=== PATIENT | male | born 1985 | race Hispanic/Latino ===

== ENCOUNTER 2023-04-01 14:42 | Emergency (ER) | payer BC ==
[~2023-04-01] VITALS: Ht 160 cm; Wt 79.4 kg
[2023-04-01 15:12] VITALS: BP 138/90; PULSE 79; RESP 18
== END 2023-04-01 19:33 | disposition home or self-care (01) ==
LOC: EDH 14:42
DX: S16.1XXA Strain of muscle, fascia and tendon at neck level, initial encounter (principal); S10.83XA Contusion of other specified part of neck, initial encounter; I10 Essential (primary) hypertension; Z90.49 Acquired absence of other specified parts of digestive tract; Z98.890 Other specified postprocedural states; X58.XXXA Exposure to other specified factors, initial encounter; Y93.89 Activity, other specified; Y92.89 Other specified places as the place of occurrence of the external cause; Y99.8 Other external cause status
CPT/HCPCS: 72125; 72128

== ENCOUNTER 2023-09-22 00:01 | Emergency (ER) | payer BC ==
[~2023-09-22] VITALS: Ht 160 cm; Wt 76.2 kg
[2023-09-22] MEDS ORDERED: CYCL-309 PO (01:02)
[2023-09-22] MEDS ORDERED: MELO10CA3 PO (01:02)
[2023-09-22 01:30] VITALS: BP 138/70; PULSE 75; RESP 16; O2SAT 100
== END 2023-09-22 01:30 | disposition home or self-care (01) ==
LOC: EDH 00:01
DX: S16.1XXA Strain of muscle, fascia and tendon at neck level, initial encounter (principal); M19.90 Unspecified osteoarthritis, unspecified site; F17.210 Nicotine dependence, cigarettes, uncomplicated; Z90.49 Acquired absence of other specified parts of digestive tract; Z79.1 Long term (current) use of non-steroidal anti-inflammatories (NSAID); W18.39XA Other fall on same level, initial encounter; Y93.89 Activity, other specified; Y92.89 Other specified places as the place of occurrence of the external cause; Y99.8 Other external cause status
CPT/HCPCS: 72125; 72128